=== PATIENT | female | born 1995 | race Caucasian/White ===

== ENCOUNTER → 2018-06-01 | Outpatient (REF) | payer OTHER ==
[~2018-06-01] MED LIST: NITR-105 PO; NORG1TAB94 PO
== END ==
PROVIDERS: ATTEND Nurse Practitioner Family
DX: J02.0 Streptococcal pharyngitis (principal)
CPT/HCPCS: 87070

== ENCOUNTER → 2018-06-01 | Outpatient (CLI) | payer OTHER ==
[~2018-06-01] MED LIST changes: +IOPAMIDOL 76% 75 ML INFUS BTL 75 ML ONE
--- NOTE | 2018-06-01 12:53 | RADIOLOGY IMAGING REPORT ---
[place]AC[place] [facility] [place] NAME: Alix Hwoard : 1995 MR: [id number] V: [id number] EXAM DATE: ORDERING PHYSICIAN: AGNES NGUYEN TECHNOLOGIST: Location: [facility] [place] Patient: Alix Howard : 1995 Visit/Account:[id number] Date of Sevice: 06/01/2018 EXAMINATION: CT neck with IV contrast HISTORY: Throat pain. TECHNIQUE: Axial soft tissue neck CT with IV contrast. Sagittal and coronal reformats. One of the following dose optimization techniques was utilized in the performance of this exam: Autom ated exposure control; adjustment of the mA and/or kV according to the patient's size; or use of an i terative reconstruction technique. Specific details can be referenced in the facility's radiology C T exam operational policy. CONTRAST: 75 mL of IV [id number] COMPARISON: None available. FINDINGS: Masses/lesions: Enlarged heterogeneously enhancing tonsils consistent with tonsillitis. No abscess. 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 Airway: Otherwise negative. Lymph nodes: Mildly enlarged bilateral submandibular and upper jugular chain lymph nodes are most lik jamie reactive. Vessels: Negative. Musculoskeletal / Body wall: Negative. Visualized orbits / brain / paranasal sinuses: Negative. Upper chest: Negative. IMPRESSION: 1. Enlarged heterogeneously enhancing tonsils consistent with tonsillitis. No abscess. Mildly enla rged bilateral submandibular and upper jugular chain lymph nodes are most likely reactive. 2. Asymmetric thyroid gland with possible nodule in the left. Thyroid ultrasound is recommended. Results were called to AGNES NGUYEN at 06/01/2018 12:48 PM. Report Dictated By: Festus Gifford MD at 06/01/2018 12:34 PM Report E-Signed By: Festus Gifford MD at 06/01/2018 12:49 PM WSN:[id number]
== END ==
LOC: CT 11:26
PROVIDERS: ATTEND Nurse Practitioner Family
DX: J03.90 Acute tonsillitis, unspecified (principal); R59.0 Localized enlarged lymph nodes; E01.0 Iodine-deficiency related diffuse (endemic) goiter
CPT/HCPCS: 70491; Q9967